=== PATIENT | female | born 1995 | race Caucasian/White ===

== ENCOUNTER 2019-04-01 19:30 | Inpatient (IN) | payer BC, OTHER ==
[2019-04-01] MEDS ORDERED: Methylergonovine 0.2 MG/ML VIAL IM PRN (20:12)
[2019-04-01] MEDS ORDERED: Promethazine HCl 25 MG/ML VIAL IM PRN (20:12)
[2019-04-01] MEDS ORDERED: Misoprostol 200 MCG TAB PR PRN (20:12)
[2019-04-01] MEDS ORDERED: Ibuprofen 800 MG TAB PO PRN (20:12)
[2019-04-01] MEDS ORDERED: hydrALAZINE 20 MG/ML VIAL SLOW IVP PRN (20:12)
[2019-04-01] MEDS ORDERED: NS / Oxytocin 40 units/1000ml 1,000 ML IV PRN (20:12)
[2019-04-01] MEDS ORDERED: Acetaminophen 500 MG TAB PO PRN (20:12)
[2019-04-01] MEDS ORDERED: Carboprost 250 MCG/ML AMP IM PRN (20:12)
[2019-04-01] MEDS ORDERED: Butorphanol Tartrate 1 MG/ML VIAL SLOW IVP PRN (20:12)
[2019-04-01] MEDS ORDERED: Ondansetron PF 4 MG/2 ML Vial IVP PRN (20:12)
[2019-04-01] MEDS ORDERED: HYDROcodone/Acetaminophen 5/325 mg Tablet PO PRN (20:12)
[2019-04-01] MEDS ORDERED: Lidocaine 1% (PF) 30 ML VIAL SC PRN (20:12)
[2019-04-01] MEDS ORDERED: Diphenoxylate HCl/Atropine Tablet PO PRN (20:12)
--- NOTE | 2019-04-01 20:20 | PDOC.LDHP ---
Labor and Delivery H&P Chief complaint: scheduled induction HPI: 23 yo G1 @ 40w5d by LMP c/w 16 week sono who presents for IOL. Pt has gestational thrombocytopenia with plt > 100K. Current gestational age (weeks): 40 Due date: 04/03/19 Dating criteria: last menstrual period Grav: 1 Para: 0 Current complications: other (Gestational thrombocytopenia) Abnormal US findings: No Past Medical History: Anemia Obesity Current medications: pre- vitamins, iron Previous surgical history: other (Upper extremity surgery) Social history: none - Physical Exam Vital signs reviewed and normal: yes General: NAD Heart: RRR Lungs: nonlabored breathing Abdomen: gravid Extremeties: no edema - OB Labs Blood type: O RH: negative Antibody Screen: negative HIV: negative RPR: negative HEPSAg: negative 1 hour GCT: negative GBS: negative Urine drug screen: negative Rubella: non-immune - Assessment 40w5d IUP IOL Gestational thrombocytopenia Obesity Rubella NI Rh neg - Plan Plan: admit to L&D, cervical ripening, informed consent obtained, anesthesia consult for pain management -: MMR and Rhogam PP
[2019-04-01 20:38] VITALS: BMI 37.0
[2019-04-01 21:08] LABS: Hemoglobin 11.8 g/dL (12.0-16.0); Mean Corpuscular HGB CONC 34.6 g/dL (32.0-36.0); Mean Corpuscular Hemoglobin 30.5 pg (27.0-31.0); Mean Corpuscular Volume 88.2 fL (78.0-98.0); RBC Distribution Width 14.5 % (11.5-14.5); Red Blood Cell (RBC) Count 3.88 mill/uL (4.20-5.40); White Blood Cell (WBC) Count 10.4 thou/uL (4.8-10.8)
[2019-04-01] MEDS: Lactated Ringer's 1,000 ML IV SCH (21:15)
[2019-04-01 21:20] LABS: Mean Platelet Volume 11.8 fL (7.4-10.4); Platelet Count 94 thou/uL (130-400)
[2019-04-01 21:44] LABS: Syphilis Antibody Nonreactive (Nonreactive); Syphilis Antibody Index 0.08 S/CO (<1.00 Non-Reactive)
[2019-04-01] MEDS: Misoprostol 100 MCG TAB VAG SCH (21:53)
[2019-04-02 00:56] LABS: HBSAg Index 0.13 S/CO (0-0.99); HIV (1/2) Antibody/Antigen Non-Reactive (NonReactive); HIV 1/2 INDEX 0.09 S/CO (<1.00); Hep B Surf Ag Non-Reactive S/CO (NonReactive)
[2019-04-02] MEDS: Misoprostol 100 MCG TAB VAG SCH ×5 (01:27→18:46)
[2019-04-02] MEDS: Lactated Ringer's 1,000 ML IV SCH ×3 (04:45→15:50)
[2019-04-02] MEDS: NS w/ Oxytocin 10 units 500 ML IV SCH (05:36)
--- NOTE | 2019-04-02 07:51 | PDOC.LDPN ---
Labor & Delivery Progress Note - Subjective Subjective: other (Feels some ctx. ) - Objective Vital signs reviewed and normal: yes General: NAD Uterine fundus: non tender Dilation: 3 Effacement: 50% Station: -2 FHT: category 1 (130s, mod josefina, +accels, no decels ) [place] contractions every: q2-3 min AROM: clear fluid (slight blood tinged) - Assessment (1) 40 weeks gestation of Code(s): Z3A.40 - 40 WEEKS GESTATION OF Current Visit: Yes Status : Acute (2) Gestational thrombocytopenia Code(s): O99.119 - OTH DIS OF BLD/BLD-FORM ORG/IMMUN MECHNSM COMP PREG,UNSP TRI ; D69.6 - THROMBOCYTOPENIA, UNSPECIFIED Current Visit: Yes Status: Acute (3) Encounter for induction of labor Code(s): Z34.90 - ENCNTR FOR SUPRVSN OF NORMAL , UNSP, UNSP TRIMESTER Current Visit: Yes Status: Acute Plan: continue plan of care, pitocin for augmentation -: Plt are relatively stable from her prior plt, known gestational HTN. Per anesthesia pt may have regional anesthesia.
[2019-04-02] MEDS ORDERED: Fentanyl 4 mcg/Bup 0.1% Cadd 100 ML ONE ×2 (09:50→17:49)
[2019-04-02] MEDS ORDERED: Fentanyl 100 MCG/2 ML VIAL ONE (10:07)
[2019-04-02] MEDS ORDERED: ePHEDrine/0.9% NaCl/PF SYRINGE 50 mg/10 ml SLOW IVP PRN (10:40)
[2019-04-02] MEDS ORDERED: Ondansetron PF 4 MG/2 ML Vial IVP PRN (10:40)
[2019-04-02] MEDS ORDERED: Acetaminophen 325 MG TAB PO PRN (10:40)
[2019-04-02] MEDS ORDERED: Naloxone HCl 0.4 mg/ml Vial IVP PRN ×2 (10:40)
[2019-04-02] MEDS ORDERED: Promethazine HCl 25 MG/ML VIAL IM PRN (10:40)
[2019-04-02] MEDS ORDERED: Lactated Ringer's 500 ML IV PRN (10:40)
[2019-04-02] MEDS ORDERED: diphenhydrAMINE 50 MG/ML VIAL IVP PRN (10:40)
[2019-04-02] MEDS ORDERED: Communication Order-Pharmacy FS SCH (10:45)
[2019-04-02] MEDS ORDERED: Fentanyl 4 mcg/Bupivacaine 0.1% Cassette 100 ML EPIDURAL SCH (10:45)
--- NOTE | 2019-04-02 14:04 | PDOC.LDPN ---
Labor & Delivery Progress Note - Subjective Subjective: comfortable - Objective Vital signs reviewed and normal: yes General: NAD Uterine fundus: non tender Dilation: 5 Effacement: 75% Station: -2 FHT: category 1 (130s, mod josefina, +accels, no decels ) [place] contractions every: q2 min IUPC placed: yes - Assessment (1) 40 weeks gestation of Code(s): Z3A.40 - 40 WEEKS GESTATION OF Current Visit: Yes Status : Acute (2) Gestational thrombocytopenia Code(s): O99.119 - OTH DIS OF BLD/BLD-FORM ORG/IMMUN MECHNSM COMP PREG,UNSP TRI ; D69.6 - THROMBOCYTOPENIA, UNSPECIFIED Current Visit: Yes Status: Acute (3) Encounter for induction of labor Code(s): Z34.90 - ENCNTR FOR SUPRVSN OF NORMAL , UNSP, UNSP TRIMESTER Current Visit: Yes Status: Acute -: Continue pitocin IUPC placed
[2019-04-02] MEDS ORDERED: NS / Oxytocin 40 units/1000ml 1,000 ML ONE (16:46)
[2019-04-02] MEDS ORDERED: Lidocaine 1% (PF) 30 ML VIAL ONE (16:46)
--- NOTE | 2019-04-02 20:30 | PDOC.LDPN ---
Labor & Delivery Progress Note - Subjective Subjective: comfortable - Objective Vital signs reviewed and normal: yes General: NAD Uterine fundus: non tender Dilation: AL (right sided lip) Effacement: 90% Station: 0 FHT: category 2 (140s, mod josefina, +accels, variable decels with several ctx, minimal recovery time btw ctx) [place] contractions every: q1-2 min FSE placed: yes Resuscitative measures: amniofusion, maternal oxygen, maternal position change - Assessment (1) 40 weeks gestation of Code(s): Z3A.40 - 40 WEEKS GESTATION OF Current Visit: Yes Status : Acute (2) Gestational thrombocytopenia Code(s): O99.119 - OTH DIS OF BLD/BLD-FORM ORG/IMMUN MECHNSM COMP PREG,UNSP TRI ; D69.6 - THROMBOCYTOPENIA, UNSPECIFIED Current Visit: Yes Status: Acute (3) Encounter for induction of labor Code(s): Z34.90 - ENCNTR FOR SUPRVSN OF NORMAL , UNSP, UNSP TRIMESTER Current Visit: Yes Status: Acute -: Pitocin d/c'ed, amnioinfusion started. Cervical lip not reducible. Position changes and resuscitation Will restart pitocin if needed after resuscitation
--- NOTE | 2019-04-03 00:25 | PDOC.OPDEL ---
OB Operative/Delivery Note Delivery Dr/Surgeon: Torri Byrne DO Pre-Delivery Diagnosis: other (maternal exhaustion in 2nd stage of labor Cat 2 FHTs) Procedure/Post Delivery Dx: operative vaginal delivery Weeks gestation: 40 Anesthesia: epidural - Findings A Sex: male - 1 min: 8 - 5 min: 9 - Additional Findings/Plan Placenta delivered: spontaneous Repaired Obstetrical Laceration: other (Right vaginal side wall, 2nd degree laceration repaired) Estimated blood loss: QBL 415 cc Compilations/Other Findings: in MELODY position Thin meconium stained AF Normal appearing placenta Nuchal cord x3 Please see dictation # [id number] Post delivery plan: routine recovery
[2019-04-03 00:39] LABS: Actual Bicarbonate (HCO3a) 16.5 mEq/L (22-28); Base Excess (BEa) -8.9 mEq/L (-2.0 to +3.0)
[2019-04-03 00:42] LABS: Actual Bicarbonate (HCO3v) 15 mEq/L (22-28); Base Excess -11.4 mEq/L (-2.0 to +3.0); pH (Cord, venous) 7.25 (7.32-7.43)
[2019-04-03] MEDS ORDERED: Preparation H Ointment 28 GM TUBE PR PRN (01:40)
[2019-04-03] MEDS ORDERED: Bisacodyl 10 MG SUPP PR PRN (01:40)
[2019-04-03] MEDS ORDERED: Benzocaine-Menthol 82.5 ML CAN TOP PRN (01:40)
[2019-04-03] MEDS ORDERED: HYDROcodone/Acetaminophen 5/325 mg Tablet PO PRN (01:40)
[2019-04-03] MEDS ORDERED: Milk Of Magnesia 30 ML UDCUP PO PRN (01:40)
[2019-04-03] MEDS ORDERED: diphenhydrAMINE 25 MG CAP PO PRN (01:40)
[2019-04-03] MEDS ORDERED: hydrALAZINE 20 MG/ML VIAL SLOW IVP PRN (01:40)
[2019-04-03] MEDS ORDERED: NS / Oxytocin 40 units/1000ml 1,000 ML IV SCH (01:40)
[2019-04-03 05:45] LABS: Hemoglobin 9.5 g/dL (12.0-16.0); Mean Corpuscular HGB CONC 34.5 g/dL (32.0-36.0); Mean Corpuscular Hemoglobin 30.7 pg (27.0-31.0); Mean Corpuscular Volume 89.2 fL (78.0-98.0); Mean Platelet Volume 12.2 fL (7.4-10.4); Platelet Count 92 thou/uL (130-400); RBC Distribution Width 14.5 % (11.5-14.5); Red Blood Cell (RBC) Count 3.09 mill/uL (4.20-5.40); White Blood Cell (WBC) Count 21.7 thou/uL (4.8-10.8)
[2019-04-03] MEDS: Ibuprofen 800 MG TAB PO SCH ×3 (05:45→21:41)
[2019-04-03] MEDS: Misoprostol 100 MCG TAB VAG SCH (07:33)
[2019-04-03] MEDS: NS w/ Oxytocin 10 units 500 ML IV SCH (07:33)
[2019-04-03] MEDS ORDERED: Measles/Mumps/Rubella 10 MCG/0.5 ML VIAL SC ONE (07:52)
[2019-04-03] MEDS: Docusate Calcium (SURFAK) 240 MG CAP PO SCH ×2 (08:08→21:41)
[2019-04-03] MEDS: Prenatal Vitamin 1 TAB PO SCH (08:08)
[2019-04-03] MEDS: Ferrous Sulfate 325 MG TAB PO SCH ×2 (08:08→17:45)
--- NOTE | 2019-04-03 08:08 | PDOC.PP ---
Post Progress Note Post Day #: 1 Subjective: Pain and lochia moderate. Voiding. Trying to BF. No concerns this AM. PO intake tolerated: yes Flatus: no Ambulation: yes Vital Signs (12 hours) Temp Pulse Resp BP Pulse Ox 04/03/19 07:42 98.4 F 106 H 20 117/59 L 96 04/03/19 04:23 96 18 128/72 04/03/19 03:18 92 18 115/61 04/03/19 02:25 98.3 F 97 18 113/57 L 98 Weight Weight 216 lb - Physical Examination General: NAD Cardiovascular: RRR Respiratory: non-labored breathing Abdominal: no distention, appropriately TTP Fundus firm & at: below umbilicus Extremities: negative homans (B) Neurological: no gross focal deficits Psychiatric: A&Ox3, normal affect Result Diagrams: 04/03/19 05:00 Additional Labs: Post Labs Blood Type O NEGATIVE 04/01/19 20:57 Hep Bs Antigen Non-Reactive S/CO (NonReactive) 04/01/19 20:57 (1) 40 weeks gestation of Code(s): Z3A.40 - 40 WEEKS GESTATION OF Status: Resolved (2) Gestational thrombocytopenia Code(s): O99.119 - OTH DIS OF BLD/BLD-FORM ORG/IMMUN MECHNSM COMP PREG,UNSP TRI ; D69.6 - THROMBOCYTOPENIA, UNSPECIFIED Status: Resolved (3) Encounter for induction of labor Code(s): Z34.90 - ENCNTR FOR SUPRVSN OF NORMAL , UNSP, UNSP TRIMESTER Status: Resolved (4) Vacuum-assisted vaginal delivery Code(s): Z37.9 - OUTCOME OF DELIVERY, UNSPECIFIED Status: Acute (5) Anemia Code(s): D64.9 - ANEMIA, UNSPECIFIED Status: Acute Qualifiers: Other causes of anemia: acute posthemorrhagic - Assessment/Plan PPD1 VSSAF Continue routine PP care. Ice packs due to vulvar/perineal swelling Fe supplement Plan for d/c 1-2 days
--- NOTE | 2019-04-03 11:09 | OP ---
DATE OF PROCEDURE: 04/02/2019 PREOPERATIVE DIAGNOSES: 1. A 40-week and 6-day intrauterine . 2. Induction of labor. 3. Maternal exhaustion. 4. heart tracing was category II strip with recurrent variable decelerations during the 2nd stage of labor. POSTOPERATIVE DIAGNOSES: 1. A 40-week and 6-day intrauterine . 2. Induction of labor. 3. Maternal exhaustion. 4. heart tracing was category II strip with recurrent variable decelerations during the 2nd stage of labor. PROCEDURE PERFORMED: Vacuum-assisted vaginal delivery COMPLICATIONS: None. QUANTITATIVE BLOOD LOSS: 415 cc FINDINGS: Viable male with Apgars 8 and 9 in cephalic presentation, MELODY position with a triple nuchal cord. Normal-appearing placenta. Thin meconium-stained amniotic fluid. Second-degree perineal laceration and right sidewall laceration repair. INDICATIONS FOR THE PROCEDURE: Ingris Borja is a 23-year-old, G1, P0, at 40 weeks and 6 days, who underwent induction of labor and progressed to 2nd stage of labor. She underwent pushing for 2 hours which allowed the fetus to be at +2 to +3 station. Due to maternal exhaustion and persistent category II strip without signs of prompt delivery, the patient was counseled and operative vaginal delivery was recommended. DESCRIPTION OF PROCEDURE: The cervix was completely dilated. The station was approximately +2 to +3 station. The estimated weight was 7 to 8 pounds. The position was left occiput anterior position, which was confirmed also with ultrasound. The bladder was drained prior to the procedure. Initially, a forceps procedure was thought to be the better choice due to the amount of caput. Faust-Luikart forceps were attempted to be articulated, however, they were not able to be articulated. Therefore, this procedure was aborted and the forceps were never applied. The patient was then counseled and a vacuum-assisted vaginal delivery was then recommended. The myti-cup vacuum was then applied at the crown of the head anterior to the posterior fontanelle. During a contraction, suction was applied with appropriate pressure and traction was applied. The vacuum was applied for approximately 7 minutes in total with traction applied during 2 contractions. The longest contraction, the second was approximately 2 minutes with delivery of the head. Remainder of the fetus was delivered atraumatically. There was a triple nuchal cord, which was noted at delivery and promptly reduced. The infant was then placed on the maternal chest. The 's cord was clamped and cut. Cord segment was obtained for cord gases and cord blood was obtained. The placenta was then delivered spontaneously intact. The fundus was firm with massage and Pitocin bolus. The vaginal lacerations were evaluated. There was a deep second-degree laceration down to the level of the sphincter, however, the sphincter was not incorporated into the laceration and then a right vaginal sidewall laceration. The perineal laceration was repaired by reinforcing the deep tissue of the perineum just superficial to the sphincter using 2-0 Vicryl in an interrupted fashion and the remainder of the second-degree repair was repaired with 3-0 chromic in a routine fashion. The same was performed on the right vaginal sidewall. The patient tolerated the procedure well. There were no complications. All counts were correct x2. The mother and will be transferred to routine recovery. Job ID: [id number] [facility]
[2019-04-04] MEDS: NS w/ Oxytocin 10 units 500 ML IV SCH (06:42)
[2019-04-04] MEDS: Ibuprofen 800 MG TAB PO SCH ×2 (06:42→14:10)
--- NOTE | 2019-04-04 07:37 | PDOC.PP ---
Post Progress Note Post Day #: 1 Subjective: Doing well, no complaints. PO intake tolerated: yes Ambulation: yes Vital Signs (12 hours) Temp Pulse Resp BP Pulse Ox 04/04/19 00:30 98.0 F 93 18 127/69 04/03/19 19:45 99 Weight Weight 216 lb - Physical Examination General: NAD Respiratory: non-labored breathing Abdominal: lochia (normal), no distention, appropriately TTP Fundus firm & at: below umbilicus Neurological: no gross focal deficits Psychiatric: A&Ox3, normal affect Result Diagrams: 04/03/19 05:00 Additional Labs: Post Labs Blood Type O NEGATIVE 04/01/19 20:57 Hep Bs Antigen Non-Reactive S/CO (NonReactive) 04/01/19 20:57 - Assessment/Plan Continue routine management. D/c later this pm vs tomorrow morning.
[2019-04-04] MEDS: Ferrous Sulfate 325 MG TAB PO SCH (08:49)
[2019-04-04] MEDS: Prenatal Vitamin 1 TAB PO SCH (08:50)
[2019-04-04] MEDS: Docusate Calcium (SURFAK) 240 MG CAP PO SCH (08:50)
[2019-04-04 12:16] VITALS: BP 130/79; TEMP 97.8
--- NOTE | 2019-04-05 02:03 | DIS ---
DATE OF ADMISSION: 04/01/2019 DATE OF DISCHARGE: 04/04/2019 ADMITTING DIAGNOSES: 1. Intrauterine at 40 weeks and 5 days. 2. Induction of labor. 3. Gestational thrombocytopenia. DISCHARGE DIAGNOSES: 1. Intrauterine at 40 weeks and 5 days. 2. Induction of labor. 3. Gestational thrombocytopenia. PROCEDURE PERFORMED: Vacuum-assisted vaginal delivery. CONSULTATIONS: None. HOSPITAL COURSE: The patient is a 23-year-old female, G1, P0, who presented to Labor and Delivery for induction of labor resulting in a vacuum-assisted vaginal delivery. For complete details, please refer to the delivery note. Of note, her intrapartum course was complicated by gestational thrombocytopenia. Her course has been uncomplicated. Today is day 2. She is tolerating p.o., voiding on her own, having decreased lochia and good pain control. PHYSICAL EXAMINATION: VITAL SIGNS: This morning, blood pressure is 130/79, temperature 97.8, pulse of 92, respiratory rate of 15. GENERAL: She appears to be in no acute distress. She is alert, oriented, cooperative, pleasant to interact with. LABORATORY DATA: Her labs yesterday showed a hemoglobin of 9.5, hematocrit 27.5, and platelets of 92,000. DISCHARGE INSTRUCTIONS: The patient is being discharged to home. She has instructions to follow up with Dr. Byrne, her primary OB in 6 weeks, or sooner if she experiences fever, increasing pain, or bleeding. The patient will be discharged to home on Motrin p.r.n. for pain control. She will also be staying with bed and breakfast for the immediate future as baby is on bilirubin lights. Job ID: [id number]
== END 2019-04-04 14:18 | disposition home or self-care (01) | DRG 806 ==
LOC: L&D 19:41 → 3SW 04-03 02:33
PROVIDERS: ADMIT Obstetrics & Gynecology; ATTEND Obstetrics & Gynecology
PROC: 10D07Z6 Extraction of Products of Conception, Vacuum, Via Natural or Artificial Opening (ICD-10-PCS; principal; 2019-04-02)
PROC: 0KQM0ZZ Repair Perineum Muscle, Open Approach (ICD-10-PCS; 2019-04-02)
PROC: 3E033VJ Introduction of Other Hormone into Peripheral Vein, Percutaneous Approach (ICD-10-PCS; 2019-04-02)
DX: O99.12 Other diseases of the blood and blood-forming organs and certain disorders involving the immune mechanism complicating childbirth (principal); D62 Acute posthemorrhagic anemia; Z37.0 Single live birth; O76 Abnormality in fetal heart rate and rhythm complicating labor and delivery; O48.0 Post-term pregnancy; Z3A.40 40 weeks gestation of pregnancy; O69.81X0 Labor and delivery complicated by cord around neck, without compression, not applicable or unspecified; O70.1 Second degree perineal laceration during delivery; O77.0 Labor and delivery complicated by meconium in amniotic fluid; D69.6 Thrombocytopenia, unspecified; O99.214 Obesity complicating childbirth; E66.01 Morbid (severe) obesity due to excess calories; O13.4 Gestational [pregnancy-induced] hypertension without significant proteinuria, complicating childbirth; O90.81 Anemia of the puerperium
CPT/HCPCS: 36415; 82805; 85027; 86780; 86850; 86900; 86901; 87340; 87389; J2001; J2405; J2590; J3010